=== PATIENT | female | born 1955 | race Caucasian/White ===

== ENCOUNTER → 2018-01-29 | Outpatient (CLI) | payer MEDICARE ==
--- NOTE | 2018-02-10 11:54 | MM ---
Reason for exam: screening (asymptomatic). Last mammogram was performed 5 years and 1 month ago. History: Patient is postmenopausal, has history of ovarian cancer at age 45, and has history of colon cancer at age 45. Family history of breast cancer in sister and breast cancer in cousin. Physical Findings: A clinical breast exam by your physician is recommended on an annual basis and results should be correlated with mammographic findings. MG 3D Screening Mammo W/Cad Bilateral CC and MLO view(s) were taken. Prior study comparison: January 12, 2013, mammogram, performed at [facility]. July 16, 2010, mammogram, performed at [facility]. There are scattered fibroglandular densities. There are benign appearing round calcifications bilaterally. There is no discrete abnormality. ASSESSMENT: Benign, BI-RAD 2 RECOMMENDATION: Routine screening mammogram of both breasts in 1 year.
== END | disposition home or self-care (01) ==
LOC: RADMAMWWP 14:28
PROVIDERS: ATTEND Family Medicine
DX: Z12.31 Encounter for screening mammogram for malignant neoplasm of breast (principal); Z80.3 Family history of malignant neoplasm of breast
CPT/HCPCS: 77063; 77067

== ENCOUNTER → 2018-03-01 | Outpatient (CLI) | payer MEDICARE ==
--- NOTE | 2018-03-01 14:58 | CT ---
EXAMINATION TYPE: CT abdomen pelvis w con DATE OF EXAM: 03/01/2018 COMPARISON: None INDICATION: Lump on abdomen DLP: 1542.50 mGycm, Automated exposure control for dose reduction was used. CONTRAST: 100 ml mL of Isovue 300. Study performed with Oral Contrast TECHNIQUE: Axial images were obtained from above the diaphragm to the pubic rami in the axial plane a t 5 mm thick sections. Reconstructed images are reviewed on the computer in the coronal plane. FINDINGS: Limited CT sections are obtained the lung bases. The lung bases are clear. There is a small hiatal hernia. CT ABDOMEN: Liver: There is moderate fatty infiltration to the liver. Hepatomegaly is present measuring 26 cm in craniocaudal dimension. Spleen: Normal Pancreas: Normal Adrenal glands: The adrenal glands are normal. Gallbladder: Normal Kidneys: There is some mild malpositioning malrotation of the right kidney. No masses are evident. No hydronephrosis is present. No cysts are present. Delayed images were obtained through the kidneys , which remain unremarkable. Aorta: Vascular calcification is within the aorta. Inferior vena cava: Normal. CT PELVIS: Loops of bowel within the abdomen and pelvis are normal. There are loops of bowel which are incom pletely distended or lack oral contrast limiting their evaluation. Appendix: Normal as visualized. Urinary bladder: Normal. Genitourinary structures: Vaginal cuff region appears normal. Adnexal region appears normal. Osseous structures: No suspicious lytic or sclerotic lesions. Sacroiliac joint and facet degenerative changes are present. There is a electronic device on the left hip with leads directed into the posterior spinal canal at t he thoracic level. No suspicious subcutaneous anterior abdominal wall masses are identified. IMPRESSIONS: 1. No suspicious anterior abdominal wall masses. 2. Hepatomegaly with moderate fatty infiltration.
== END | disposition home or self-care (01) ==
LOC: RADCTMAIN 12:20
PROVIDERS: ATTEND Family Medicine
DX: K76.0 Fatty (change of) liver, not elsewhere classified (principal)
CPT/HCPCS: 74177; Q9967

== ENCOUNTER → 2020-03-16 | Outpatient (CLI) | payer MEDICARE ==
--- NOTE | 2020-03-20 08:50 | MM ---
Reason for exam: screening (asymptomatic). Last mammogram was performed 2 years and 2 months ago. History: Patient is postmenopausal, has history of ovarian cancer at age 45, and has history of colon cancer at age 45. Family history of breast cancer in sister and breast cancer in cousin. Physical Findings: A clinical breast exam by your physician is recommended on an annual basis and results should be correlated with mammographic findings. MG 3D Screening Mammo W/Cad Bilateral CC and MLO view(s) were taken. Prior study comparison: January 29, 2018, bilateral MG 3d screening mammo w/cad. January 12, 2013, mammogram, performed at [facility]. There are scattered fibroglandular densities. No significant changes when compared with prior studies. ASSESSMENT: Negative, BI-RAD 1 RECOMMENDATION: Routine screening mammogram of both breasts in 1 year.
== END | disposition home or self-care (01) ==
LOC: RADMAMWWP 08:05
PROVIDERS: ATTEND Internal Medicine Geriatric Medicine
DX: Z12.31 Encounter for screening mammogram for malignant neoplasm of breast (principal)
CPT/HCPCS: 77063; 77067

== ENCOUNTER → 2022-08-11 | Outpatient (CLI) | payer MEDICARE ==
--- NOTE | 2022-08-12 08:32 | MM ---
Reason for Exam: Screening (asymptomatic). Last mammogram was performed 2 year(s) and 5 month(s) ago. Patient History: Menarche at age 7. First Full-Term at age 16. Left ovary removed at age 55. Right ovary removed at age 55. Hysterectomy at age 30. Postmenopausal. Ovarian cancer, age 45. Maternal cousin had breast cancer, age 45. Sister had breast cancer, age 46. Risk Values: Nancy 5 year model risk: 3.5%. NCI Lifetime model risk: 11.0%. Prior Study Comparison: 01/12/2013 Screening Mammogram, [facility]. 01/29/2018 Bilateral Screening Mammogram, [facility]. 03/16/2020 Bilateral Screening Mammogram, [facility]. Tissue Density: There are scattered fibroglandular densities. Findings: Analyzed By CAD. There is no suspicious group of microcalcifications or new suspicious mass in either breast. Overall Assessment: Negative, BI-RAD 1 Management: Screening Mammogram of both breasts in 1 year. A clinical breast exam by your physician is recommended on an annual basis and results should be correlated with mammographic findings. Electronically signed and approved by: Maury Hunter D.O.
== END | disposition home or self-care (01) ==
LOC: RADMAMWWP 06:42
PROVIDERS: ATTEND Family Medicine
DX: Z12.31 Encounter for screening mammogram for malignant neoplasm of breast (principal); Z78.0 Asymptomatic menopausal state; Z80.3 Family history of malignant neoplasm of breast
CPT/HCPCS: 77063; 77067

== ENCOUNTER → 2023-08-19 | Outpatient (CLI) | payer MEDICARE ==
--- NOTE | 2023-08-19 16:38 | P.HPBAR ---
Bariatric H&P - History & Physicial H&P Date: 08/19/23 History & Physicial: Visit/CC: Patient initial contact: Initial weight: Initial weight in pounds: Height: Initial BMI: Last weight: Current weight: Current weight in pounds: Current BMI: [place] body weight (based on NIH guidelines): Excess body weight loss: The patient is a 67 year-old F who presents for Bariatric Assessment. Has excess fat. She has pain in the LLQ. She reports a hernia. Has gastric bypass. Has panniculitis. Highest 295 pounds. Lowest to 180 pounds and now regained all weight. Did laparscopic surgery. Steroids . In 2006, had exlap for appendicitis after gastric bypass. Needs labs. She had CT scan for abdomen. She had xlap for colon cancer and uterus in the left side. CT of abdomen. Pannicuilitis and abdominal wall reconstruction. She has simulator at lower abdomen. Needs labs. Past Medical History Additional Past Medical History / Comment(s): back pain, hypotension History of Any Multi-Drug Resistant Organisms: None Reported Past Surgical History: Back Surgery Past Psychological History: No Psychological Hx Reported Past Alcohol Use History: None Reported Past Drug Use History: None Reported Bariatric Checklist Checklist: Plan: Checklist: EGD: 1. Hiatal hernia: 2. H. Pylori: HgbA1c: Vitamin D: Smoking: Never smoker Primary care physician referral: Psychiatry clearance: Cardiology clearance: Sleep study: Diet journal: VTE risk score: VTE risk level: Rehab needs at discharge:
[2023-08-20 14:52] VITALS: BP 135/9; PULSE 90; RESP 16; TEMP 98.7; BMI 35.6
== END ==
LOC: BARWHC3 14:14
PROVIDERS: ATTEND Surgery Plastic and Reconstructive Surgery
DX: E66.01 Morbid (severe) obesity due to excess calories (principal); Z53.9 Procedure and treatment not carried out, unspecified reason
CPT/HCPCS: 99211

== ENCOUNTER → 2023-08-20 | Outpatient (CLI) | payer MEDICARE ==
[2023-08-20 11:03] LABS: INR 0.8 (<1.2); Partial Thromboplastin Time 25.2 sec (22.0-30.0); Prothrombin Time 9.6 sec (10.0-12.5)
[2023-08-20 15:19] LABS: HCT 44.7 % (37.2-46.3); MCH 29.6 pg (27.0-32.0); MCHC 31.3 g/dL (32.0-37.0); MCV 94.5 FL (80.0-97.0); Mean Platelet Volume 10.1 FL (9.5-12.2); NRBC Per 100 WBC 0 X 10*3/uL (0.00-0.01); Platelet Count 278 X 10*3/uL (140-440); RBC 4.73 X 10*6/uL (4.10-5.20); RDW 12.6 % (11.5-14.5); WBC 6.27 X 10*3/uL (4.50-10.00)
[2023-08-20 15:27] LABS: Prealbumin 25.2 mg/dL (18.0-42.0)
[2023-08-20 15:44] LABS: % Iron Saturation 15.92 (12.00-45.00); ALT 23 U/L (8-44); AST 22 U/L (13-35); Albumin 4.3 g/dL (3.8-4.9); Albumin/Globulin Ratio 1.72 Ratio (1.60-3.17); Alkaline Phosphatase 104 U/L (41-126); BUN/Creat Ratio 25.33 Ratio (12.00-20.00); Blood Urea Nitrogen 22.8 mg/dL (9.0-27.0); Calcium 9.3 mg/dL (8.7-10.3); Carbon Dioxide 26.8 mmol/L (21.6-31.8); Chloride 103 mmol/L (96-109); Chol/HDL Ratio 5.83 Ratio; Globulin 2.5 g/dL (1.6-3.3); Glucose 126 mg/dL (70-110); Iron 60 UG/DL (50-170); LDL Cholesterol,Calculated 189.7 mg/dL (0.0-131.0); Magnesium 2.2 mg/dL (1.5-2.4); Phosphorus 4.2 mg/dL (2.4-5.1); Potassium 5.1 mmol/L (3.5-5.5); Sodium 142 mmol/L (135-145); Total Bilirubin 0.2 mg/dL (0.3-1.2); Total Iron Binding Capacity 377 UG/DL (228-460); Total Protein 6.8 g/dL (6.2-8.2)
[2023-08-21 11:59] LABS: Zinc, Serum 140 ug/dL (60-130)
[2023-08-22 09:19] LABS: Vitamin A 77 ug/dL (38-106)
== END | disposition home or self-care (01) ==
LOC: LABWHC1 10:07
PROVIDERS: ATTEND Surgery Plastic and Reconstructive Surgery
DX: E66.01 Morbid (severe) obesity due to excess calories (principal); E89.1 Postprocedural hypoinsulinemia; D50.8 Other iron deficiency anemias; E44.0 Moderate protein-calorie malnutrition; E44.1 Mild protein-calorie malnutrition; E45 Retarded development following protein-calorie malnutrition; E55.9 Vitamin D deficiency, unspecified; K74.1 Hepatic sclerosis; N19 Unspecified kidney failure; T56.894A Toxic effect of other metals, undetermined, initial encounter; K50.90 Crohn's disease, unspecified, without complications
CPT/HCPCS: 36415; 80053; 80061; 82306; 82525; 82607; 82728; 82746; 83036; 83540; 83550; 83735; 83970; 84100; 84134; 84255; 84425; 84443; 84590; 84630; 85027; 85610; 85730

== ENCOUNTER → 2023-08-28 | Outpatient (CLI) | payer MEDICARE ==
--- NOTE | 2023-08-28 16:18 | CT ---
EXAMINATION TYPE: CT abdomen pelvis w con DATE OF EXAM: 08/28/2023 COMPARISON: 03/01/2018 INDICATION: hernia, history of colon CA DLP: 1663 mGycm, Automated exposure control for dose reduction was used. CONTRAST: 100 mL of Isovue 300. Study performed with Oral Contrast TECHNIQUE: Axial images were obtained from above the diaphragm to the pubic rami in the axial plane a t 5 mm thick sections. Reconstructed images are reviewed on the computer in the coronal plane. FINDINGS: Limited CT sections are obtained the lung bases. Some minimal streak opacities at the left lateral l francisca base could be some atelectasis in the lingula. Small hiatal hernia is present. CT ABDOMEN: Liver: Normal Spleen: Normal Pancreas: Normal Adrenal glands: The adrenal glands are normal. Gallbladder: Multiple small gallstones are present. Some layering sludge may be present Kidneys: No masses are evident. No hydronephrosis is present. No cysts are present. Delayed images were obtained through the kidneys, which remain unremarkable. Aorta: Vascular calcification is within the aorta. Inferior vena cava: Normal. CT PELVIS: Loops of bowel within the abdomen and pelvis are normal. There are loops of bowel which are incom pletely distended or lack oral contrast limiting their evaluation. Appendix: Not identified. No dilated tubular structure or inflammatory changes evident. Urinary bladder: Normal. Genitourinary structures: Uterus and ovaries are not identified. Osseous structures: No suspicious lytic or sclerotic lesions. IMPRESSION: 1. Cholelithiasis and hyperdense sludge within the gallbladder.
== END | disposition home or self-care (01) ==
LOC: RADCTMAIN 09:37
PROVIDERS: ATTEND Surgery Plastic and Reconstructive Surgery
DX: K80.20 Calculus of gallbladder without cholecystitis without obstruction (principal); Z85.038 Personal history of other malignant neoplasm of large intestine
CPT/HCPCS: 74177; Q9967

== ENCOUNTER → 2023-09-10 | Outpatient (CLI) | payer MEDICARE | END | disposition home or self-care (01) | LOC: LABPAT 09:30 | PROVIDERS: ATTEND Surgery Plastic and Reconstructive Surgery | DX: Z01.818 Encounter for other preprocedural examination (principal) | CPT/HCPCS: 93005 ==

== ENCOUNTER → 2023-09-23 | Outpatient (CLI) | payer MEDICARE ==
[2023-09-23 15:13] VITALS: BP 118/75; PULSE 118; RESP 16; TEMP 97.8; BMI 36.2
--- NOTE | 2023-09-23 15:41 | P.BASOAP ---
Subjective Progress Note Date: 09/23/23 DATE OF SERVICE: 09/23/23 CHIEF COMPLAINT: Status post gastric bypass HISTORY OF PRESENT ILLNESS: Patient Tiana a 67-year-old female who comes with lifelong morbid obesity. She has personal history of gastric bypass over 10 and 20 years ago, 2006. Her highest weight was 295 pounds. She presents with bilateral upper abdominal pain for over 6 months. She has personal history of multiple abdominal surgeries due to colon cancer, ovarian cancer and uterine cancer status postresection. Still has her gallbladder. She reports her lowest weight was 180 pounds and has lost over 110 pounds now with weight regain. She also presents with moderate to severe panniculitis for over 5 years. She rep orts chronic skin infections. She has a stimulator along the lower abdomen. She had additional diagnostic studies due to her abdominal pain. She presents for management of her abdominal pain. At height of 5 feet 6.5 inches, her ideal body weight is 154 pounds. Highest weight is 295 pounds with body mass index of 47.0. She initially had lost over 180 pounds, 115 to 120 pounds weight loss. She comes in 224 pounds now with 43 pound weight gain. Her body mass index is 36.2. Lifetime weight loss 71 pounds. Lifetime percent excess weight loss 50%. She is 70 pounds overweight. PAST MEDICAL HISTORY: 1. Morbid obesity due to excess calories 2. Body mass index of 47.0 3. Osteoarthritis of the knees. 4. Osteoarthritis of the lower back. 5. Chronic pain syndrome 6. Panniculitis 7. Colon cancer 8. Uterine cancer 9. Ovarian cancer PAST SURGICAL HISTORY: 1. Appendectomy 2. Colectomy 3. Gastric bypass 4. Hysterectomy 5. Left wrist surgery 6. Spinal stimulator 7. Bilateral knee replacement 8. Left shoulder replacement 9. Back surgery HOME MEDICATIONS: Home Medications Medication Instructions Recorded Confirmed Gabapentin [Neurontin] 300 mg PO TID 10/14/14 10/07/23 HYDROcodone/APAP 10-325MG [[place] 1 each PO Q6H PRN 10/14/14 10/07/23 10-325] Previous Rx's Medication Instructions Recorded Acetaminophen Tab [Tylenol Tab] 1,000 mg PO Q6HR PRN #30 tablet 10/02/23 Simethicone [Gas-X] 125 mg PO AC-TID PRN #20 capsule 10/02/23 Nystatin 100,000 Unit/gm Powd 1 applic TOPICAL BID #60 gm 10/07/23 [Mycostatin Powder] ALLERGIES: Allergies Allergy/AdvReac Type Severity Reaction Status Date / Time aspirin Allergy Swelling Verified 10/07/23 14:12 azithromycin Allergy Rash/Hives Verified 10/07/23 14:12 ibuprofen [From Motrin] Allergy Swelling Verified 10/07/23 14:12 SOCIAL HISTORY: Past tobacco use. FAMILY HISTORY: No family history of ulcerative colitis disease or Crohn's disease. Family history of morbid obesity. No lupus in the family. No reports of stomach or esophageal cancer. REVIEW OF ORGAN SYSTEMS: CONSTITUTIONAL: HEENT: Denies any active troubles with vision or hearing. Has troubles with swallowing. ENDOCRINE: Has diabetes. No hypothyroidism. CARDIOVASCULAR: Past reports of palpitations or heart attacks or chest pain. Has hypertensive heart disease. RESPIRATORY: Has daytime somnolence. Has asthma. Has chronic obstructive pulmonary disease. GASTROINTESTINAL: Denies any bright red blood per rectum. No diarrhea. No constipation. Has gastroesophageal reflux disease. GENITOURINARY: Has bladder urgency. No recent blood in urine MUSCULOSKELETAL: Has lower back pain and joint pain. Has osteoarthritis of the knees. History of bilateral lower extremity edema. NEURO: No headaches. No seizure disorders. Has neuropathy. PSYCH: Has depression. No suicidal ideation. RHEUMATOLOGIC: No lupus. No rheumatoid arthritis. HEMATOLOGIC: Denies any abnormal bleeding or bruising. Past history of DVTs. On blood thinners. SKIN: No rash. No skin cancer. PHYSICAL EXAM: VITAL SIGNS: Height 5 foot 6.5 inches, weight 224 pounds. BMI 35.6 Vital Signs Temp 97.8 F 09/23/23 15:07 Pulse 118 H 09/23/23 15:07 Resp 16 09/23/23 15:07 BP 118/75 09/23/23 15:07 Pulse Ox FiO2 GENERAL: Well-developed in no acute distress. HEENT: No scleral icterus. Extraocular movements grossly intact. Hears conversational speech. No nasal drainage. NECK: Supple without lymphadenopathy. CHEST: Nonlabored respirations with equal bilateral excursions. CARDIOVASCULAR: Distal 2+ pulses. Tachycardic ABDOMEN: Obese, soft, nondistended. Tender bilateral upper abdomen. Well- healed midline incision. Grade 3 panniculitis. MUSCULOSKELETAL: No clubbing, cyanosis. NEURO: No focal or lateralizing signs. Cranial nerves 2 through 12 grossly within normal limits. PSYCH: Appropriate affect. Alert and oriented to person, place and time. SKIN: Good skin turgor. Well perfused. LABS: Reviewed from July 2023 demonstrates elevated triglyceride and cholesterol. No vitamin deficiencies STUDIES: CT of the abdomen pelvis independently reviewed from August 2023 demonstrates gallstones. This is my independent interpretation. REPORT: CT report demonstrates small bowel loops without abnormalities. Gallstones identified. EKG: Demonstrates normal EKG from August 2023 ASSESSMENT: 1. Morbid obesity due to excess calories 2. Body mass index of 47.0 3. Osteoarthritis of the knees. 4. Osteoarthritis of the lower back. 5. Chronic pain syndrome 6. Panniculitis 7. Colon cancer 8. History of uterine cancer 9. History of ovarian cancer 10. Bilateral upper abdominal pain 11. Symptomatic gallstones 12. Peritoneal adhesions 13. Hypertriglyceridemia 14. Hypercholesterolemia PLAN: 1. Recommend cholecystectomy due to bilateral upper abdominal pain. She is elevated risk due to multiple abdominal surgeries and peritoneal adhesions 2. Recommend follow-up primary care provider due to hypercholesterolemia and hypertriglyceridemia Objective - Vital Signs Vital signs: Vital Signs Temp 97.8 F 09/23/23 15:07 Pulse 118 H 09/23/23 15:07 Resp 16 09/23/23 15:07 BP 118/75 09/23/23 15:07 Pulse Ox FiO2 Intake & Output 09/22/23 09/23/23 09/23/23 18:59 06:59 18:59 Weight 103.419 kg Assessment/Plan Plan: Date: 09/23/23 Initial Weight: 133.81 kg Initial BMI: 46.9 Current Weight: 103.419 kg Current BMI: 36.2 Type of Surgery: Sophia-en-Y Gastric Bypass Total Volume in Band: Previous Volume: Volume Removed: Volume Added: Band Size:
== END ==
LOC: BARWHC3 14:52
PROVIDERS: ATTEND Surgery Plastic and Reconstructive Surgery
DX: E66.01 Morbid (severe) obesity due to excess calories (principal); M17.0 Bilateral primary osteoarthritis of knee; M47.816 Spondylosis without myelopathy or radiculopathy, lumbar region; G89.4 Chronic pain syndrome; M79.3 Panniculitis, unspecified; C18.9 Malignant neoplasm of colon, unspecified; K80.20 Calculus of gallbladder without cholecystitis without obstruction; K66.0 Peritoneal adhesions (postprocedural) (postinfection); E78.00 Pure hypercholesterolemia, unspecified; E78.1 Pure hyperglyceridemia; R10.10 Upper abdominal pain, unspecified; Z85.41 Personal history of malignant neoplasm of cervix uteri; Z85.43 Personal history of malignant neoplasm of ovary; Z68.42 Body mass index [BMI] 45.0-49.9, adult; Z88.6 Allergy status to analgesic agent; Z88.1 Allergy status to other antibiotic agents; Z98.84 Bariatric surgery status; Z90.3 Acquired absence of stomach [part of]
CPT/HCPCS: 99211

== ENCOUNTER 2023-10-02 08:22 | Day surgery (SDC) | payer MEDICARE ==
--- NOTE | 2023-10-02 06:15 | P.GSHP ---
History of Present Illness H&P Date: 10/02/23 CHIEF COMPLAINT: Cholecystitis HISTORY OF PRESENT ILLNESS: The patient is a 67-year-old female who presents with history of epigastric including right upper quadrant abdominal pain. She underwent diagnostic studies for her gallbladder. Separately her clinical picture was consistent with cholecystitis. Now she presents for surgical intervention. PAST MEDICAL HISTORY: Please see list PAST SURGICAL HISTORY: Please see list MEDICATIONS: Please see list ALLERGIES: Please see list SOCIAL HISTORY: Please see list FAMILY HISTORY: Please see list REVIEW OF ORGAN SYSTEMS: CONSTITUTIONAL: No reports of fevers or chills. HEENT: Denies any troubles with the vision or hearing. ENDOCRINE: No reports of hypothyroidism. No diabetes. RESPIRATORY: No recent pneumonias. CARDIOVASCULAR: Denies chest pain or palpitations GI: No blood in stools or constipation. MUSCULOSKELETAL: Has occasional joint pain including back pain. NEURO: No seizure disorders or headaches. No recent stroke. PSYCH: No depression or suicidal ideation. GENITOURINARY: No active blood in urine. No urinary hesitancy. HEMATOLOGIC: No personal or family history of DVTs or pulmonary emboli. SKIN: No skin cancer. PHYSICAL EXAM: VITAL SIGNS: Afebrile vital signs stable GENERAL: Well-developed pleasant in no acute distress. HEENT: No scleral icterus. Extraocular movements grossly intact. Moist buccal mucosa. NECK: Supple without lymphadenopathy. CHEST: Unlabored respirations. Equal bilateral excursions. CARDIOVASCULAR: Regular rate regular rhythm rhythm. Distal 2+ pulses. ABDOMEN: Soft, nondistended. Tender along the epigastrium and right upper quadrant. MUSCULOSKELETAL: No clubbing, cyanosis, or edema. NEURO: Cranial nerves II to XII within normal limits. No focal or lateralizing signs. PSYCH: Alert and oriented to person, place and time. SKIN: Well-perfused good skin turgor. ASSESSMENT: 1. Epigastric and right upper quadrant abdominal pain 2. Chronic cholecystitis 3. Symptomatic gallstones. PLAN: 1. Will need a robotic cholecystectomy possible open. Benefits and risks were described. 2. Heparin for DVT prophylaxis 5000 units. 3. Antibiotic prophylaxis. 4. CBC and CMP on day of procedure 5. Non-narcotic pre and post op pain management reviewed. 6. Indocyanine green for biliary imaging. Past Medical History Past Medical History: Cancer Additional Past Medical History / Comment(s): back pain, hypotension, colon and ovarian CA History of Any Multi-Drug Resistant Organisms: None Reported Past Surgical History: Appendectomy, Back Surgery, Bariatric Surgery, Hysterectomy, Joint Replacement, Orthopedic Surgery Additional Past Surgical History / Comment(s): colectomy, left wrist surg. with jose francisco placed, spinal stimulator, twan. knee repl., left shoulder repl. Past Anesthesia/Blood Transfusion Reactions: No Reported Reaction Smoking Status: Never smoker - Past Family History Mother Family Medical History: Cancer Additional Family Medical History / Comment(s): multi organ CA Father Family Medical History: Cancer Additional Family Medical History / Comment(s): prostate CA Brother(s) Family Medical History: Congestive Heart Failure (CHF) Additional Family Medical History / Comment(s): from CHF Sister(s) Family Medical History: Congestive Heart Failure (CHF) Additional Family Medical History / Comment(s): from CHF. second sister with breast CA-still living Medications and Allergies Home Medications Medication Instructions Recorded Confirmed Type Gabapentin [Neurontin] 300 mg PO TID 10/14/14 09/29/23 History HYDROcodone/APAP 10-325MG [[place] 1 each PO Q6H PRN 10/14/14 09/29/23 History 10] Allergies Allergy/AdvReac Type Severity Reaction Status Date / Time aspirin Allergy Swelling Verified 09/29/23 09:00 azithromycin Allergy Rash/Hives Verified 09/29/23 09:00 ibuprofen [From Motrin] Allergy Swelling Verified 09/29/23 09:00
[~2023-10-02 08:22] MED LIST: HYDROmorphone 0.5 MG/0.5 ML SYRINGE IVP PRN; INDOCYANINE GREEN 25 MG VIAL IV ONE
[2023-10-02] MEDS: LACTATED RINGERS 1,000 ML IV SCH (09:04)
[2023-10-02] MEDS: DEXAMETHASONE SOD PHOSPHATE 4 MG/ML 1 ML VIAL IV ONE (09:05)
[2023-10-02] MEDS: ONDANSETRON 4 MG/2 ML VIAL IVP ONE (09:05)
[2023-10-02] MEDS: HEPARIN SODIUM,PORCINE 5,000 UNIT/ML 1 ML VIAL SQ PRN (09:05)
[2023-10-02 09:06] LABS: Basophils % (A) 0 %; Eosinophils # (A) 0.1 k/uL (0-0.7); Eosinophils % (A) 2 %; HCT 42.8 % (34.0-46.0); HGB 13.8 gm/dL (11.4-16.0); Lymphocytes # (A) 1.5 k/uL (1.0-4.8); Lymphocytes % (A) 20 %; MCH 29.4 pg (25.0-35.0); MCHC 32.2 g/dL (31.0-37.0); MCV 91.2 fL (80.0-100.0); Mean Platelet Volume 7.1; Monocytes # (A) 0.3 k/uL (0-1.0); Monocytes % (A) 5 %; Neutrophils # (A) 5.4 k/uL (1.3-7.7); Neutrophils % (A) 72 %; Platelet Count 265 k/uL (150-450); WBC 7.5 k/uL (3.8-10.6)
[2023-10-02] MEDS ORDERED: SUGAMMADEX SODIUM 200 MG/2 ML SDV IV ONE (09:15)
[2023-10-02] MEDS ORDERED: fentaNYL (PF) 50 MCG/ML 2 ML AMP ONE (09:15)
[2023-10-02] MEDS ORDERED: MIDAZOLAM 2 MG/2 ML VIAL ONE (09:15)
[2023-10-02] MEDS ORDERED: ROCURONIUM 10 MG/ML (5 ML VIAL) IV ONE (09:15)
[2023-10-02] MEDS ORDERED: PROPOFOL 10 MG/ML 20 ML VIAL IV ONE (09:15)
[2023-10-02] MEDS ORDERED: PHENYLEPHRINE-0.9% NACL SYG 1,000 MCG/10 ML SYRINGE ONE (09:15)
[2023-10-02] MEDS ORDERED: INDOCYANINE GREEN 25 MG VIAL IV ONE (09:15)
[2023-10-02] MEDS ORDERED: GLYCOPYRROLATE 0.2 MG/ML 2 ML VIAL ONE (09:15)
[2023-10-02] MEDS ORDERED: LIDOCAINE 1% INJ 10MG/ML (20 ML MDV) ONE (09:15)
[2023-10-02] MEDS ORDERED: NEOSTIGMINE 1 MG/ML 10 ML VIAL ONE (09:15)
[2023-10-02 09:19] LABS: ALT 21 U/L (4-34); AST 27 U/L (14-36); African American GFR (CKD) 89 (>60 ml/min/1.73 sqM); Albumin 4.1 g/dL (3.5-5.0); Alkaline Phosphatase 114 U/L (38-126); Anion Gap 3 mmol/L; Blood Urea Nitrogen 25 mg/dL (7-17); Calcium 9.2 mg/dL (8.4-10.2); Carbon Dioxide 30 mmol/L (22-30); Chloride 105 mmol/L (98-107); Glucose 140 mg/dL (74-99); Non-African American GFR(CKD) 77 (>60 ml/min/1.73 sqM); Potassium 4.5 mmol/L (3.5-5.1); Sodium 138 mmol/L (137-145); Total Bilirubin 0.7 mg/dL (0.2-1.3); Total Protein 6.9 g/dL (6.3-8.2)
[2023-10-02] MEDS: LIDOCAINE 1%-EPI 1:100,000 20 ML VIAL SQ ONE (09:45)
--- NOTE | 2023-10-02 11:19 | P.OP ---
Date of Procedure: 10/02/23 Description of Procedure: SURGEON: EMELYN JAMES MD PREOPERATIVE DIAGNOSES: 1. Symptomatic gallstones 2. Right upper quadrant abdominal pain 3. History of gastric bypass 4. History of multiple abdominal surgeries 5. Chronic pain syndrome 6. Morbid obesity due to excess calories, BMI 35.4 7. History of colon cancer 8. History of ovarian cancer POSTOPERATIVE DIAGNOSES: 1. Symptomatic gallstones 2. Right upper quadrant abdominal pain 3. History of gastric bypass 4. History of multiple abdominal surgeries 5. Chronic pain syndrome 6. Morbid obesity due to excess calories, BMI 35.4 7. History of colon cancer 8. History of ovarian cancer 9. Severe intra-abdominal adhesions OPERATION: 1. Robotic-assisted da Ethan Xi laparoscopic lysis of adhesions over 50% of the case 2. Robotic-assisted da Ethan Xi laparoscopic cholecystectomy, multiport with FIREFLY ESTIMATED BLOOD LOSS: 30 mL. SPECIMENS REMOVED: Gallbladder. COMPLICATIONS: None. OPERATIVE FINDINGS: 1. Moderate to severe intra-abdominal adhesions involving small bowel to abdominal wall from prior surgeries, epigastrium and midline 2. Severe lyse of adhesions requiring over 50% of the case INDICATIONS: The patient is a 67-year-old female who presents with symptomatic gallstones. She has personal history of multiple abdominal surgeries. Robotic assisted laparoscopic approach was described. Benefits and risks of the procedure including but not limited to bleeding, infection, injury to the biliar y tree was described. Informed consent was obtained. DESCRIPTION OF PROCEDURE: Patient was brought to the operating room, placed in supine position. After general induction, the abdomen had been prepped and draped in standard sterile fashion. The robotic da Ethan XI system was primed. After a timeout protocol was performed, the patient had been prepped and draped in standard sterile fashion. The patient was injected with indocyanine green. A 5 mm 0 degrees laparoscopic trocar entry was performed along the left upper quadrant. The abdomen insufflated to 15 mmHg pressure which was tolerated well. Diagnostic laparoscopy demonstrated no injury to bowel viscera or mesentery. The liver surface was unremarkable. Next, two 8 mm robotic ports were placed along the right upper abdomen. The camera 8-mm port was maintained along the epigastrium. Another 8 mm port was placed along the left upper abdominal wall after exchanging the 5 mm port. Please note that the ports were placed at least 10 to 15 cm away from the target anatomy of the gallbladder. Moderate bleeding occurred from her skin incisions and controlled with pressure. The robot was docked along the left lateral abdomen. The patient was repositioned in reverse Trendelenburg position. Using a grasper for arm 3, a grasper for arm 4, including hook cautery for arm 1, the robotic system was docked and primed as described. Instruments were interchanged by the loan assistant including hook cautery, Bovie cautery and clip appliers. I had sat at the console. Severe epigastric and upper midline adhesions was identified requiring extensive lysis of adhesions using hook cautery including vessel sealer for over 50% of the case. The gallbladder was scarred with peritoneal adhesions. Lysis of adhesions was performed to free the gallbladder from the surrounding tissues. Dome down technique was performed starting from the fundus toward the infundibulum. Next attention was brought to the infundibulum and cystic structures. The infundibulum and cystic duct were dissected free from surrounding tissues. The cystic duct was isolated. FIREFLY was used to identify the cystic artery and cystic structures. A critical view of safety was obtained. Large PLASTIC clips were used throughout the entire case. Using a clip aeronautical engineering teacher, 3 clips were placed at the junction of the infundibulum and cystic duct. The cystic duct was divided between clips. Next, the cystic artery was similarly clipped and cauterized. Electro-Bovie cautery was used to remove the gallbladder from the hepatic fossa. Hemostasis was checked and found to be adequate. The robot was undocked. I re-scrubbed into the case. Using a 10 mm Endo Catch bag via the left upper quadrant incision, the specimen was removed from the abdominal cavity. All pneumoperitoneum instruments were evacuated from the abdominal cavity. The incisions were reapproximated using 4-0 Monocryl in an interrupted subcuticular fashion. Fascial defects were less than 8 mm in size. Please note along the trocar sites, local anesthetic was placed as a field block prior to insertion of all instruments. Liquid glue was applied to the skin. At the end of the procedure needle, sponge, and instrument count had been verified correct by the supervisor sound technician. The patient was transferred to postanesthesia care unit in stable condition. Plan - Discharge Summary Discharge Rx Participant: No New Discharge Prescriptions: New Simethicone [Gas-X] 125 mg PO AC-TID PRN #20 capsule PRN Reason: Pain Acetaminophen Tab [Tylenol Tab] 1,000 mg PO Q6HR PRN #30 tablet PRN Reason: Pain Continue HYDROcodone/APAP 10-325MG [[place] 10-325] 1 each PO Q6H PRN PRN Reason: Pain Gabapentin [Neurontin] 300 mg PO TID Discharge Medication List Gabapentin [Neurontin] 300 mg PO TID 10/14/14 [History] HYDROcodone/APAP 10-325MG [[place] 10-325] 1 each PO Q6H PRN 10/14/14 [History] Acetaminophen Tab [Tylenol Tab] 1,000 mg PO Q6HR PRN #30 tablet 10/02/23 [Rx] Simethicone [Gas-X] 125 mg PO AC-TID PRN #20 capsule 10/02/23 [Rx] [facility]Ref[facility] [place] [facility] [place] 10[facility]23 2:00 pm Patient Instructions/Handouts: Laparoscopic Cholecystectomy (GEN) Activity/Diet/Wound Care/Special Instructions: Recommend low-fat diet for the next 2 days. No lifting over 10 pounds in 2 weeks until OCTOBER 15September shower. No bath tub soaks for two weeks until OCTOBER 15 Diet as tolerated. Use Tylenol, simethicone scheduled for the next 24-48 hours for best pain relief. Use ice along incisions for today to prevent swelling. Discharge Disposition: HOME SELF-CARE
[2023-10-02 11:29] VITALS: RESP 16; TEMP 97.6
[2023-10-02] MEDS: LACTATED RINGERS 1,000 ML IV ONE (11:44)
[2023-10-02 12:56] VITALS: BP 151/75; PULSE 74
== END 2023-10-02 12:39 | disposition home or self-care (01) ==
LOC: OR 08:22
PROVIDERS: ATTEND Surgery Plastic and Reconstructive Surgery
DX: K80.10 Calculus of gallbladder with chronic cholecystitis without obstruction (principal); G89.18 Other acute postprocedural pain; G89.4 Chronic pain syndrome; Z85.43 Personal history of malignant neoplasm of ovary; Z98.84 Bariatric surgery status; Z85.038 Personal history of other malignant neoplasm of large intestine; E66.01 Morbid (severe) obesity due to excess calories; Z68.35 Body mass index [BMI] 35.0-35.9, adult; Z90.89 Acquired absence of other organs; Z90.710 Acquired absence of both cervix and uterus; Z90.49 Acquired absence of other specified parts of digestive tract; Z82.49 Family history of ischemic heart disease and other diseases of the circulatory system; Z80.3 Family history of malignant neoplasm of breast; Z88.6 Allergy status to analgesic agent; Z98.890 Other specified postprocedural states; Z79.899 Other long term (current) drug therapy
CPT/HCPCS: 80053; 85025; 47563; J2250; J1644; J1100; J2710; J0690; J2405; J2001; J3010; J2704; J2371; 88304

== ENCOUNTER → 2023-10-07 | Outpatient (CLI) | payer MEDICARE ==
[2023-10-07 14:31] VITALS: BP 139/77; PULSE 103; RESP 14; TEMP 98; BMI 35.9
--- NOTE | 2023-10-07 14:44 | P.BASOAP ---
Subjective Progress Note Date: 10/07/23 She feels better. She has severe scar tissue. Gallbladder images given. Pathology reviewed. She wants to get down to 180 before skin removal surgery. Nystatin powder. Has grade 3+ panniculitis. Objective - Vital Signs Vital signs: Vital Signs Temp 98 F 10/07/23 14:12 Pulse 103 H 10/07/23 14:12 Resp 14 10/07/23 14:12 BP 139/77 10/07/23 14:12 Pulse Ox FiO2 Intake & Output 10/06/23 10/07/23 10/07/23 18:59 06:59 18:59 Weight 102.512 kg Assessment/Plan Plan: Date: 10/07/23 Initial Weight: 133.81 kg Initial BMI: 46.9 Current Weight: 102.512 kg Current BMI: 35.9 Type of Surgery: Total Volume in Band: Previous Volume: Volume Removed: Volume Added: Band Size:
== END ==
LOC: BARWHC3 13:46
PROVIDERS: ATTEND Surgery Plastic and Reconstructive Surgery
DX: E66.01 Morbid (severe) obesity due to excess calories (principal); M79.3 Panniculitis, unspecified; Z88.6 Allergy status to analgesic agent; Z88.1 Allergy status to other antibiotic agents; Z68.35 Body mass index [BMI] 35.0-35.9, adult
CPT/HCPCS: 99211

== ENCOUNTER → 2024-03-17 | Outpatient (CLI) | payer MEDICARE ==
[2024-03-17 16:39] LABS: ALT 18 U/L (8-44); AST 26 U/L (13-35); Albumin 4.1 g/dL (3.8-4.9); Albumin/Globulin Ratio 1.64 Ratio (1.60-3.17); Alkaline Phosphatase 104 U/L (41-126); BUN/Creat Ratio 24.78 Ratio (12.00-20.00); Blood Urea Nitrogen 22.3 mg/dL (9.0-27.0); Calcium 9.2 mg/dL (8.7-10.3); Carbon Dioxide 27.4 mmol/L (21.6-31.8); Chloride 104 mmol/L (96-109); Globulin 2.5 g/dL (1.6-3.3); Glucose 124 mg/dL (70-110); Potassium 4.4 mmol/L (3.5-5.5); Sodium 140 mmol/L (135-145); Total Bilirubin 0.2 mg/dL (0.3-1.2); Total Protein 6.6 g/dL (6.2-8.2)
== END | disposition home or self-care (01) ==
LOC: LABWHC1 09:13
PROVIDERS: ATTEND Family Medicine
DX: Z00.00 Encounter for general adult medical examination without abnormal findings (principal)
CPT/HCPCS: 36415; 80053; 83036